=== PATIENT | male | born 1990 | race American Indian/Alaskan Native ===

== ENCOUNTER 2021-05-24 11:19 | Emergency (ER) | payer SELFPAY ==
[2021-05-24 11:46] VITALS: BP 139/89
[2021-05-24] MEDS ORDERED: IBUPROFEN 600 MG TAB PO ONE (11:46)
[2021-05-24] MEDS ORDERED: TETRACAINE 0.5% OPHTH SOLN 4ML OU ONE (11:46)
[2021-05-24] MEDS ORDERED: BALANCED SALT IRRIG (BSS) OPHTH SOLN 15 ML OU ONE (11:46)
[2021-05-24] MEDS ORDERED: ERYTHROMYCIN 5 MG/1 GM OPHTH OINT OU ONE (11:46)
[2021-05-24] MEDS ORDERED: FLUORESCEIN 1 MG STRIP OP ONE (11:46)
--- NOTE | 2021-05-24 11:47 | Emergency Department Report ---
ED Eye Problem HPI - General Chief complaint: Eye Problems Stated complaint: EYE PAIN/DISCOMFORT Time Seen by Provider: 05/24/21 11:46 Source: patient Mode of arrival: Ambulatory Limitations: No Limitations - Related Data Previous Rx's Medication Instructions Recorded Last Taken Type Polymyxin B Sulf/Trimethoprim 2 drop OS Q6H #1 bottle 05/24/21 Unknown Rx [Polytrim Eye Drops] Allergies Allergy/AdvReac Type Severity Reaction Status Date / Time No Known Allergies Allergy Verified 05/24/21 11:43 ED Review of Systems ROS: Stated complaint: EYE PAIN/DISCOMFORT Other details as noted in HPI Comment: All other systems reviewed and negative ED Past Medical Hx - Past Medical History Previous Medical History?: No - Surgical History Past Surgical History?: No - Family History Family history: no significant - Social History Smoking Status: Never Smoker Substance Use Type: None - Medications Home Medications: Home Medications Medication Instructions Recorded Confirmed Last Taken Type Polymyxin B Sulf/Trimethoprim 2 drop OS Q6H #1 bottle 05/24/21 Unknown Rx [Polytrim Eye Drops] ED Physical Exam - General Limitations: No Limitations General appearance: alert, in no apparent distress - Head Head exam: Present: atraumatic, normocephalic - Eye Eye exam: Present: normal appearance - ENT ENT exam: Present: mucous membranes moist - Neck Neck exam: Present: normal inspection - Respiratory Respiratory exam: Present: normal lung sounds bilaterally. Absent: respiratory distress - Cardiovascular Cardiovascular Exam: Present: regular rate, normal rhythm. Absent: systolic murmur, diastolic murmur, rubs, gallop - GI/Abdominal GI/Abdominal exam: Present: soft, normal bowel sounds - Rectal Rectal exam: Present: deferred - Extremities Exam Extremities exam: Present: normal inspection - Back Exam Back exam: Present: normal inspection - Neurological Exam Neurological exam: Present: alert, oriented X3 - Psychiatric Psychiatric exam: Present: normal affect, normal mood - Skin Skin exam: Present: warm, dry, intact, normal color. Absent: rash ED Course Vital Signs 05/24/21 11:43 Temperature 98.4 F Pulse Rate 84 Respiratory 16 Rate Blood Pressure 139/89 [Left] O2 Sat by Pulse 98 Oximetry ED Medical Decision Making - Medical Decision Making Vital Signs 05/24/21 11:43 Temperature 98.4 F Pulse Rate 84 Respiratory 16 Rate Blood Pressure 139/89 [Left] O2 Sat by Pulse 98 Oximetry motrin for pain eye stain completed erythromycin oint applied pt educated on post dc care. D/c home with dc plan of care including eye MD follow up in 48 hours, meds, and activity - Differential Diagnosis ro fb/iritis/conjunctivits/globe injury Critical care attestation.: If time is entered above; I have spent that time in minutes in the direct care of this critically ill patient, excluding procedure time. ED Disposition Clinical Impression: Eye irritation Disposition: 01 HOME / SELF CARE / HOMELESS Is pt being admited?: No Does the pt Need Aspirin: No Condition: Stable Additional Instructions: wear your safety goggles med as ordered today motrin or tylenol for pain follow up with eye MD in 48 hours referral below Referrals: DEAN DOHERTY MD [Staff Physician] - 3-5 Days Forms: Work/School Release Form(ED) Time of Disposition: 12:29
== END 2021-05-24 12:50 | disposition home or self-care (01) ==
LOC: ED 11:19
DX: H57.10 Ocular pain, unspecified eye (principal); H53.149 Visual discomfort, unspecified
CPT/HCPCS: 99282